=== PATIENT | female | born 1975 | race Caucasian/White ===

== ENCOUNTER 2016-12-29 00:34 | Emergency (ER) | payer MEDICAID ==
--- NOTE | 2016-12-29 19:29 | ER ---
ADMIT: 12/29/2016 RM/LOC: ER [facility] MR#: [id number] [id number] [place], [place] [id number] PAWAN WHITE [address] [facility] [place] [address] Emergency Room Report SEX: F AGE: 41 : 1975 DATE: 12/29/2016 HISTORY OF PRESENT ILLNESS: The patient is a 41-year-old female with past medical history of allegedly mittelschmerz disease, came to the ER with chief complaint of suprapubic pain today for the last 4 hours. The patient states she has similar pain in the past and was diagnosed with mittelschmerz. The patient states she is on her 2nd day of menstruation. Pain is moderate in severity and increases with palpation of the area. The patient denies any nausea, vomiting, and states today she had normal bowel movement. The patient had no urinary symptoms. Pain was controlled moderately. PHYSICAL EXAMINATION: HEAD and NECK: Noncontributory. LUNGS: Normal breath sounds bilaterally. HEART: Normal S1, S2. ABDOMEN: Tender in suprapubic area without any rebound or guarding. There is no McBurney tenderness. The rest of the physical exam of the abdomen was negative. PELVIC: The patient had no cervical motion tenderness and no adnexal tenderness or mass. LABORATORY DATA AND IMAGING: The patient had negative test. The patient had WBC of 10.3, with hemoglobin of 20.5, and platelets of 264. Urine had 2 wbc and 1 rbc. CMP was noncontributory. The rest of the lab works were noncontributory. CT of the abdomen and pelvis was negative for any abnormalities. The patient was observed, pain was mostly resolved. The patient was discharged to home with return precautions and follow up with the primary doctor as needed. The patient agreed with the plan and acknowledged she understood it. Beto Carter MD/ lisseth JOB #: [id number] CC: Beto Carter MD, Attending Physician Other Physician, Family Physician
== END 2016-12-29 04:00 | disposition home or self-care (01) ==
LOC: ER 00:34
DX: R10.9 Unspecified abdominal pain (principal); Z88.1 Allergy status to other antibiotic agents; Z79.899 Other long term (current) drug therapy